=== PATIENT | female | born 1990 | race Caucasian/White ===

== ENCOUNTER 2016-12-11 08:25 | Day surgery (SDC) | payer BC, SELFPAY ==
[2016-12-09 09:08] LABS: ASPARTATE AMINO TRANSFERASE 10 U/L (15-37); BLOOD UREA NITROGEN 11 mg/dL (7-18)
[~2016-12-11] VITALS: Ht 177.8 cm; Wt 71.5 kg
[~2016-12-11 08:25] MED LIST: ALPR0.25 PO; BUPIVACAINE/PF-EPI 0.5% 1:200K ONE; DEXT10TA7 PO; LAMO200T3 PO; LISD40CA PO; LITH300T30 PO
[2016-12-11] MEDS ORDERED: LACTATED RINGERS 1,000 ML IV SCH (08:58)
[2016-12-11 09:11] LABS: DAU SCREEN DISCLAIMER
[2016-12-11 09:22] LABS: HCG UR OBC PASS
[2016-12-11 09:23] VITALS: BP 106/69
[2016-12-11] MEDS ORDERED: FENTANYL PF 100 MCG/2ML ONE ×2 (10:19→11:59)
[2016-12-11] MEDS ORDERED: MIDAZOLAM 1 MG/ML, 2ML ONE (10:19)
[2016-12-11] MEDS ORDERED: FENTANYL PF 100 MCG/2ML IV PRN (11:30)
[2016-12-11] MEDS ORDERED: HYDROmorphone 1 MG/ML, 1ML IV PRN (11:30)
[2016-12-11] MEDS ORDERED: METOPROLOL 1 MG/ML, 5ML IV PRN (11:30)
[2016-12-11] MEDS ORDERED: MIDAZOLAM 1 MG/ML, 2ML IV PRN (11:30)
[2016-12-11] MEDS ORDERED: PROMETHAZINE 25 MG/ML, 1ML IV PRN (11:30)
[2016-12-11] MEDS ORDERED: hydrALAzine 20 MG/ML, 1ML IV PRN (11:30)
[2016-12-11] MEDS ORDERED: ALBUTEROL SULFATE 2.5 MG/3 ML NPPB PRN (11:30)
[2016-12-11] MEDS ORDERED: MEPERIDINE/PF 25MG/0.5ML IVPush PRN (11:30)
[2016-12-11] MEDS ORDERED: OXYcodone 5 MG/5 ML ORAL.SOL UDC PO PRN (11:30)
[2016-12-11] MEDS ORDERED: ACETAMINOPHEN 325 MG TABLET PO PRN (11:30)
[2016-12-11] MEDS ORDERED: OXYcodone 5 MG/5 ML ORAL.SOL UDC ONE (11:59)
[2016-12-11] MEDS ORDERED: ACETAMINOPHEN 650 MG/20.3 ML UDC ONE (11:59)
[2016-12-11] MEDS ORDERED: HYDROcodone/APAP 5/325 TABLET ONE (13:05)
[2016-12-11] MEDS ORDERED: HYDROcodone/APAP 5/325 TABLET PO PRN (13:30)
[2016-12-11] MEDS ORDERED: ONDANSETRON 2MG/ML, 2ML ONE (16:14)
[2016-12-11] MEDS ORDERED: KETOROLAC 30 MG/1 ML ONE (16:14)
[2016-12-11] MEDS ORDERED: DEXAMETHASONE 4 MG/ML, 1ML ONE (16:14)
[2016-12-11] MEDS ORDERED: PROPOFOL 10 MG/ML, 20ML ONE (16:14)
== END 2016-12-11 14:00 ==
LOC: OUT 08:25
PROVIDERS: ATTEND Surgery
DX: D24.2 Benign neoplasm of left breast (principal); F31.9 Bipolar disorder, unspecified; F17.200 Nicotine dependence, unspecified, uncomplicated; G43.909 Migraine, unspecified, not intractable, without status migrainosus; Z88.8 Allergy status to other drugs, medicaments and biological substances; Z90.710 Acquired absence of both cervix and uterus; Z98.890 Other specified postprocedural states; Z72.89 Other problems related to lifestyle
CPT/HCPCS: 19120; 36415; 80053; 80307; 81025; 85025; 88307; J1100; J1885; J2250; J2405; J2704; J3010; J7120